=== PATIENT | female | born 1960 | race Caucasian/White ===

== ENCOUNTER 2023-11-01 11:16 | Outpatient (CLI) | payer SELFPAY ==
--- NOTE | 2023-11-01 12:34 | MM_ITS ---
WS: [id number] SCREENING DIGITAL BREAST TOMOSYNTHESIS MAMMOGRAM WITH CAD HISTORY: SCREEN COMPARISON: 07/17/2016 Bilateral CC and MLO with tomosynthesis and synthetic mammography submitted. Computer aided detection analyzed. Breast composition: The breasts are heterogeneously dense, which may obscure small masses. 5.5 mm asy mmetry noted only on the LEFT MLO projection in the middle depth along the lateral breast. Not defini tely seen on the CC projection but is within the lateral breast. Otherwise the fibroglandular densiti es are stable. IMPRESSION: MM/[place] [id number] BI-RADS: 0-Incomplete: Need additional imaging evaluation FOLLOW UP: Need Additional Imaging LEFT breast: Spot compression views (CC and MLO). True ML. Ultrasound to follow if abnormality persists.
== END 2023-11-01 11:17 | disposition home or self-care (01) ==
LOC: RAD 11:16
PROVIDERS: Family Provider Internal Medicine; Visit Provider Internal Medicine
DX: Z12.31 Encounter for screening mammogram for malignant neoplasm of breast (principal)
CPT/HCPCS: 77063; 77067

== ENCOUNTER 2023-12-10 10:46 | Outpatient (CLI) | payer SELFPAY ==
--- NOTE | 2023-12-10 10:53 | MM_ITS ---
WS: [id number] ADDITIONAL VIEWS LEFT MAMMOGRAM with tomosynthesis. LEFT BREAST ULTRASOUND HISTORY: ABNORMAL MAMMOGRAM COMPARISON: 11/01/2023, 07/17/2016 LEFT MAMMOGRAM: Spot compression views and true ML with tomosynthesis and sympathetic mammography. The asymmetry measuring 5.9 mm persists in the far lateral LEFT breast close to the skin surface. Thi s does not correspond to the mole marker. LEFT BREAST ULTRASOUND 2-D and color Doppler imaging submitted. There are 2 benign cysts in the LEFT breast. The largest is 2 cm from the nipple at 3:00 measuring 0. 5 x 0.6 x 0.4 cm. The smaller cyst at 2:00, 1 cm of the nipple measures 0.6 x 0.4 x 0.3 cm. MM/[place] [id number] IMPRESSION: BI-RADS: 2-Benign FOLLOW UP: 1 Year Follow-up
== END 2023-12-10 10:47 | disposition home or self-care (01) ==
LOC: RAD 10:47
PROVIDERS: PCP Internal Medicine; Visit Provider Internal Medicine
DX: R92.8 Other abnormal and inconclusive findings on diagnostic imaging of breast (principal); N64.89 Other specified disorders of breast; N60.02 Solitary cyst of left breast
CPT/HCPCS: 76642; 77061; G0279